=== PATIENT | male | born 1995 | race Caucasian/White ===

== ENCOUNTER 2017-09-04 02:35 | Emergency (ER) | payer OTHER ==
[2017-09-04] MEDS ORDERED: Magnesium Hydroxide (MOM) 30 mL UDC PO ONE (03:02)
[2017-09-04] MEDS ORDERED: Donnatal Liq 5 ML UDC PO STA (03:04)
[2017-09-04] MEDS ORDERED: Magnesium Hydroxide (MOM) 30 mL UDC ONE (03:07)
--- NOTE | 2017-09-04 03:13 | ED Physician Chart ---
ED Chief Complaint/HPI - Patient Information Date Seen:: 09/04/17 Time Seen:: 03:00 Chief Complaint:: abd pain History of Present Illness:: 21 yroldmale with abd pain Allergies:: Allergies Allergy/AdvReac Type Severity Reaction Status Date / Time No Known Allergies Allergy Verified 09/04/17 02:49 Vitals:: Vital Signs - 8 hr 09/04/17 02:40 Temp 97.9 F HR 58 RR 18 BP 146/86 O2 Sat % 98 Historian:: Patient ED Review of Systems - Review of Systems General/Constitutional: No fever, No chills, No weight loss, No weakness, No diaphoresis, No edema, No loss of appetite Skin: No skin lesions, No rash, No bruising Head: No headache, No light-headedness Eyes: No loss of vision, No pain, No diplopia ENT: No earache, No nasal drainage, No sore throat, No tinnitus Neck: No neck pain, No swelling, No thyromegaly, No stiffness, No mass noted Cardio Vascular: No chest pain, No palpitations, No PND, No orthopnea, No edema Pulmonary: No SOB, No cough, No sputum, No wheezing GI: No nausea, No vomiting, No diarrhea, No pain, No melena, No hematochezia, No constipation, No hematemesis G/U: No dysuria, No frequency, No hematuria Musculoskeletal: No bone or joint pain, No back pain, No muscle pain Endocrine: No polyuria, No polydipsia Psychiatric: No prior psych history, No depression, No anxiety, No suicidal ideation Hematopoietic: No bruising, No lymphadenopathy Allergic/Immuno: No urticaria, No angioedema Neurological: No syncope, No focal symptoms, No weakness, No paresthesia, No headache, No seizure, No dizziness, No confusion, No vertigo ED Past Medical History - Past Medical History Past Medical History: No significant medical hx Family History: None Social History: Alcohol, Single Surgical History: None Psychiatricy History: Depression Medication: Reviewed Family Medical History - Family Member Mother History Unknown: Yes ED Physical Exam - Physical Examination General/Constitutional: Awake, Well-developed, well-nourished, Alert, No distress, GCS 15, Non-toxic appearing, Ambulatory Head: Atraumatic Eyes: Lids, conjuctiva normal, PERRL, EOMI Skin: Nl inspection, No rash, No skin lesions, No ecchymosis, Well hydrated, No lymphadenopathy ENMT: External ears, nose nl, Nasal exam nl, Lips, teeth, gums nl Neck: Nontender, Full ROM w/o pain, No JVD, No nuchal rigidity, No bruit, No mass, No stridor Respiratory: Nl effort/Exclusion, Clear to Auscultation, No Wheeze/Rhonchi/Rales Cardio Vascular: RRR, No murmur, gallop, rubs, NL S1 S2 GI: No tenderness/rebounding/guarding, No organomegaly, No hernia, Normal BS's, Nondistended, No mass/bruits, No McBurney tenderness : No CVA tenderness Neuro/Psych: Alert/oriented, DTR's symmetric, Normal sensory exam, Normal motor strength, Judgement/insight normal, Mood normal, Normal gait, No focal deficits Misc: Normal back, No paraspinal tenderness ED Assessment - Assessment Excludes all billable procedures: No This condition life threatening/high prob of deterioration: No - Procedures Informed Consent: Procedure/risk/benefits explained by MD: No Laceration Type:: None ED Septic Shock - . Is Septic Shock (SBP<90, OR Lactate>4 mmol\L) present?: No - <6hrs of presentation: Vital Signs: Vital Signs - 8 hr 09/04/17 02:40 Temp 97.9 F HR 58 RR 18 BP 146/86 O2 Sat % 98 ED Discharge Plan - Patient Disposition Admit/Discharge/Transfer: PT DISCHARGED HOME Condition at Disposition: Improved Additional Instructions: Follow discharge instructions and doctor's orders. If symptoms worsen follow up with your primary doctor or come back to the ED.
--- NOTE | 2017-09-04 03:24 | ED Physician Chart ---
History of Present Illness - General Chief Complaint: Other Stated Complaint: ABDOMINAL PAIN Time Seen by Provider: 09/04/17 03:00 Source: Patient Exam Limitations: No Limitations - History of Present Illness Initial Comments: 21 yr old male in good health with epigastric pain for half hour without NVD no hematemsis no dark stool no headache or dizziness Timing/Duration: 1/2 hour Abdominal Pain Onset Location: RUQ Pain Radiation: no radiation Activities at Onset: N Modifying Factors: lying down Associated Symptoms: heartburn Allergies/Adverse Reactions: Allergies No Known Allergies Allergy (Verified 09/04/17 02:49) Home Medications: Ambulatory Orders Sertraline [Zoloft] 50 mg PO HS 09/04/17 Past History - Social History Smoking Status: Never smoker Hx Alcohol Use: Yes (OCCAS.) Hx Drug Use: No Family Medical History - Family Member Mother History Unknown: Yes Review of Systems - Review of Systems Constitutional: Reports: No Symptoms Reported EENTM: Reports: No symptoms reported Respiratory: Reports: No Symptoms Reported Cardiac (ROS): Reports: No Symptoms Reported ABD/GI: Reports: See HPI : Reports: No Symptoms Reported Musculoskeletal: Reports: No Symptoms Reported, See HPI Skin: Reports: No Symptoms Reported Neurological: Reports: No Symptoms Reported, See HPI Endocrine: Reports: No Symptoms Reported, See HPI Hematologic/Lymphatic: Reports: No Symptoms Reported All Other Systems: Reviewed and Negative ED Discharge Plan - Patient Disposition Admit/Discharge/Transfer: PT DISCHARGED HOME Condition at Disposition: Improved Instructions: Heartburn, [id number], Abdominal Pain, [id number] Additional Instructions: Follow discharge instructions and doctor's orders. If symptoms worsen follow up with your primary doctor or come back to the ED.
== END 2017-09-04 03:45 | disposition home or self-care (01) ==
LOC: ER 02:35
DX: R10.9 Unspecified abdominal pain (principal)
CPT/HCPCS: Z7502